=== PATIENT | male | born 1990 | race Caucasian/White ===

== ENCOUNTER 2025-08-15 11:03 | Emergency (ER) | payer SELFPAY ==
[2025-08-15 11:32] LABS: BASOPHILS ABSOLUTE AUTO 0.0 K/mm3 (0.0-0.2); BASOPHILS PERCENT AUTO 0.3 % (0.0-1.0); EOSINOPHILS ABSOLUTE AUTO 0.2 K/mm3 (0.0-0.4); EOSINOPHILS PERCENT AUTO 2.2 % (0.0-6.0); IMMATURE GRAN ABSOLUTE AUTO 0.06 K/mm3 (0.00-0.05); IMMATURE GRAN PERCENT AUTO 0.7 % (0.0-0.4); LYMPHOCYTES ABSOLUTE AUTO 1.8 K/mm3 (1.0-4.8); LYMPHOCYTES PERCENT AUTO 20.1 % (24.0-44.0); MEAN PLATELET VOLUME 10.6 fl (9.4-12.4); MONOCYTES ABSOLUTE AUTO 0.6 K/mm3 (0.0-0.8); MONOCYTES PERCENT AUTO 7.0 % (0.0-8.0); NEUTROPHILS ABSOLUTE AUTO 6.3 K/mm3 (1.8-7.7); NEUTROPHILS PERCENT AUTO 69.7 % (41.0-71.0); NRBC ABSOLUTE 0.00 (0.00-0.02); NRBC PERCENT 0.0 % (0.0-0.2); PLATELET COUNT,PLT 223 K/mm3 (150-400); RED BLOOD CELL COUNT 6.42 M/mm3 (4.52-5.90); WHITE BLOOD CELL COUNT,WBC 9.10 K/mm3 (3.9-11.3)
[2025-08-15] MEDS: Sodium Chloride 0.9% 10 ML Syringe FLUSH ONE (11:56)
[2025-08-15] MEDS: Iopamidol 755 Mg/ML 100 ML Bottle IVPUSH ONE (11:56)
[2025-08-15 12:01] LABS: A/G RATIO 1.0 (1-2); ALANINE AMINOTRANSFERASE,ALT 68.0 U/L (16-63); ASPARTATE AMNIOTRANSFERASE,AST 34.0 U/L (15-37); BILIRUBIN TOTAL 1.1 mg/dL (0.2-1.0); BLOOD UREA NITROGEN,BUN 12.0 mg/dL (7-18); CARBON DIOXIDE,CO2 28.0 mEq/L (21-32); CHLORIDE,CL 104.0 mEq/L (98-107); CREATINE KINASE,CK 349.0 U/L (39-308); CREATININE 0.9 mg/dL (0.7-1.3); EST CRCL DRUG DOSING (CG) 117.83 mL/min; ESTIMATED GFR 116.0 mL/min (>60); GLUCOSE RANDOM 127.0 mg/dL (70-99); POTASSIUM,K 3.6 mEq/L (3.5-5.1); PROTEIN TOTAL,TP 7.8 g/dl (6.4-8.2); SODIUM,NA 141.0 mEq/L (136-145); TROPONIN I HIGH SENSITIVITY 19.0 pg/mL (<=76)
[2025-08-15 12:02] LABS: ETHANOL BLOOD MEDICAL 0.0 gm% (0.00)
== END 2025-08-15 13:10 | disposition home or self-care (01) ==
LOC: JD.ED 11:03
DX: E86.9 Volume depletion, unspecified (principal); R06.02 Shortness of breath; E86.0 Dehydration
CPT/HCPCS: 36415; 71275; 80053; 80307; 82550; 83690; 83735; 84484; 85025; 87428; 96360; 99285; J7030; Q9967; 93010; 99283